=== PATIENT | female | born 1995 | race American Indian/Alaskan Native ===

== ENCOUNTER 2017-01-06 10:55 | Emergency (ER) | payer OTHER ==
[2017-01-06 11:18] VITALS: BP 146/85
[2017-01-06] MEDS ORDERED: BENADRYL PO ONE (12:41)
--- NOTE | 2017-01-06 17:48 | Emergency Department Report ---
Entered by TAMY DELGADILLO, acting as scribe for SHILPA LEVINE PA. ED Rash HPI - HPI Chief Complaint: Skin Rash Stated Complaint: ITCHING ALL OVER Time Seen by Provider: 01/06/17 12:19 Duration: 2 weeks Location: Other (generalized) Suspected Cause: Unknown Rash Symptoms: Yes Itching (generalized), No Facial Swelling, No Tongue/Oral Swelling, No Breathing Difficulties, No Choking Sensation, No Wheezing/Dyspnea, No Peeling, No Blistering, No Fever, No Lightheaded, No Malaise, No Myalgias Severity: mild Other History: 21 y/o female with a PMHx of diabetes mellitus and herpes presents to the ED c/o a generalized rash that began 2 weeks ago. Patient states she the onset of the rash began once she started living an a hotel, Home Stay. Reports her roommates have similar rash. Rates severity a 0/10. Denies any pain, fever, chills, nausea, vomiting, headache, dizziness, sore throat, chest pain, SOB, numbness, and tingling. Denies that the rash is erythematous. Patient states she's been out of medication, acyclovir QD. NKDA. ED Review of Systems ROS: Stated complaint: ITCHING ALL OVER Other details as noted in HPI Comment: All other systems reviewed and negative Constitutional: denies: chills, fever Eyes: denies: eye pain, eye discharge, vision change ENT: denies: ear pain, throat pain Respiratory: denies: cough, orthopnea, shortness of breath, SOB with exertion, SOB at rest, stridor, wheezing Cardiovascular: denies: chest pain, palpitations, dyspnea on exertion, orthopnea , edema, syncope, paroxysmal nocturnal dyspnea Endocrine: no symptoms reported Gastrointestinal: denies: abdominal pain, nausea, vomiting, diarrhea Genitourinary: denies: urgency, dysuria, discharge Musculoskeletal: denies: back pain, joint swelling, arthralgia Skin: rash (generalized with associated itching). denies: lesions Neurological: denies: headache, weakness, paresthesias Psychiatric: denies: anxiety, depression Hematological/Lymphatic: denies: easy bleeding, easy bruising ED Past Medical Hx - Past Medical History Previous Medical History?: Yes Hx Diabetes: Yes Additional medical history: Herpes - Surgical History Past Surgical History?: No - Social History Smoking Status: Current Some Day Smoker Substance Use Type: None - Medications Home Medications: Home Medications Medication Instructions Recorded Confirmed Last Taken Type Fluconazole [Diflucan] 150 mg PO QDAY #1 tablet 01/22/14 Unknown Rx Nitrofurantoin [place]/M-Cryst 100 mg PO Q12HR #14 capsule 01/22/14 Unknown Rx [Macrobid] metroNIDAZOLE [Flagyl] 500 mg PO Q8HR #14 tablet 01/22/14 Unknown Rx HYDROcodone/APAP 5-325 [[place] 1 each PO Q8H PRN #15 tablet 02/27/15 Unknown Rx 5/325] Phenazopyridine [Pyridium] 200 mg PO TID #6 tab 02/27/15 Unknown Rx Promethazine [Phenergan TAB] 25 mg PO Q8HR PRN #12 tab 02/27/15 Unknown Rx Sulfamethoxazole/Trimethoprim 1 each PO BID #20 tablet 02/27/15 Unknown Rx [Bactrim DS TAB] Triamcinolone Acetonide 1 applic TP BID #120 ml 01/06/17 Unknown Rx [Triamcinolone 0.1% LOTION] diphenhydrAMINE [Benadryl CAP] 25 mg PO QHS PRN #30 capsule 01/06/17 Unknown Rx Rash Exam - Exam General: Vital signs noted. GENERAL: Patient is alert and oriented x 3. No apparent distress, normal gait, atraumatic. HEENT: No Periorbital Edema, No Conjuctival Injection, No Chemosis, No Perioral Edema, No Tongue Edema, No Uvular Edema, No Compromised Airway, No Drooling Lungs: Yes Good Air Exchange (Symmetrical with respiration. No wheezing, rales or crackles, CTAB.), No Wheezes, No Ronchi, No Stridor, No Cough, No Labored Respirations, No Retractions, No Use of Accessory Muscles, No Other Abnormal Lung Sounds Heart: Yes Regular (Regular rate and rhythm with normal S1/S2 present. No murmurs, rubs, or gallops.), No Murmur Skin: Yes Other (patient is itching during exam, but no rash noted), No Urticarial Rash, No Maculopapular Rash, No Morbilliform rash, No Bulla(e), No Excoriations, No Weeping, No Tenderness, No Erythema, No Edema, No Encrustations Other: Positive: Abdomen Normal (Soft, nondistended. Nontender to palpation on all quadrants.), Neurologic Normal (No focal deficit.), Musculoskeletal Normal ( ROM intact, 2+ pulses in UE/LE, no pitting edema) ED Course Vital Signs 01/06/17 11:11 Temperature 98.6 F Pulse Rate 73 Respiratory 16 Rate Blood Pressure 146/85 O2 Sat by Pulse 99 Oximetry ED Medical Decision Making - Medical Decision Making 21 year-old female presents with generalized rash ED course: Patient was given Benadryl Vital signs stable patient is in no acute or respiratory distress. Discussed findings with patient about diagnoses. Discussed treatment in ED with patient Discussed with patient to follow up with PCP as referred, and to return to the ED if symptoms return or worsen. Patient states understanding and will follow instructions. Pt verbally states understanding and will comply to follow up. Critical care attestation.: If time is entered above; I have spent that time in minutes in the direct care of this critically ill patient, excluding procedure time. ED Disposition Clinical Impression: Generalized pruritus Disposition: - TO HOME OR SELFCARE Is pt being admited?: No Does the pt Need Aspirin: No Condition: Stable Instructions: Itchy Skin (ED), Acute Rash (ED) Prescriptions: diphenhydrAMINE [Benadryl CAP] 25 mg PO QHS PRN #30 capsule PRN Reason: Itching Triamcinolone Acetonide [Triamcinolone 0.1% LOTION] 1 applic TP BID #120 ml Referrals: PRIMARY CARE, [Primary Care Provider] - 3-5 Days [facility] [Outside] - 3-[address] [facility] [Outside] - 3-5 Days [facility] [Outside] - 3-5 Days Forms: Accompanied Note, Work/School Release Form(ED) Time of Disposition: 12:45 This documentation as recorded by the LEONA maynard JASMINE,accurately reflects the service I personally performed and the decisions made by ,SHILPA LEVINE PA.
== END 2017-01-06 13:00 | disposition home or self-care (01) ==
LOC: ED 10:55
DX: L29.9 Pruritus, unspecified (principal); E11.9 Type 2 diabetes mellitus without complications; F17.200 Nicotine dependence, unspecified, uncomplicated
CPT/HCPCS: 82962; 99282

== ENCOUNTER 2017-07-15 12:37 | Emergency (ER) | payer SELFPAY ==
[2017-07-15 12:42] VITALS: BP 146/67
--- NOTE | 2017-07-15 14:57 | Emergency Department Report ---
ED Headache HPI - General Chief Complaint: Headache Stated Complaint: HEADACHE Time Seen by Provider: 07/15/17 14:37 - History of Present Illness Initial Comments: Patient is a 22-year-old female presented with headache. Patient states that 4 days ago she ate something at work made her sick she had several episodes of nausea vomiting and diarrhea for a day. Patient states next day she SLEPT all day really wasn't eating or drinking nausea vomiting was improved but was not feeling well still. Patient states headache began than his persistent for the neck last 3 days. Patient states it's worse when she stands up denies any nausea vomiting currently. Patient states the headache is roughly a 6 out of 10 in severity. Allergies/Adverse Reactions: Allergies No Known Allergies Allergy (Verified 07/15/17 12:43) Home Medications: Ambulatory Orders Fluconazole [Diflucan] 150 mg PO QDAY #1 tablet 01/22/14 Nitrofurantoin [place]/M-Cryst [Macrobid] 100 mg PO Q12HR #14 capsule 01/22/14 metroNIDAZOLE [Flagyl] 500 mg PO Q8HR #14 tablet 01/22/14 HYDROcodone/APAP 5-325 [[place] 5/325] 1 each PO Q8H PRN #15 tablet 02/27/15 Phenazopyridine [Pyridium] 200 mg PO TID #6 tab 02/27/15 Promethazine [Phenergan TAB] 25 mg PO Q8HR PRN #12 tab 02/27/15 Sulfamethoxazole/Trimethoprim [Bactrim DS TAB] 1 each PO BID #20 tablet Triamcinolone Acetonide [Triamcinolone 0.1% LOTION] 1 applic TP BID #120 ml diphenhydrAMINE [Benadryl CAP] 25 mg PO QHS PRN #30 capsule 01/06/17 Ibuprofen [Motrin] 600 mg PO Q8H PRN #20 tablet 07/15/17 ED Review of Systems ROS: Stated complaint: HEADACHE Other details as noted in HPI Comment: All other systems reviewed and negative ED Past Medical Hx - Past Medical History Hx Diabetes: Yes Additional medical history: Herpes - Social History Smoking Status: Current Some Day Smoker - Medications Home Medications: Home Medications Medication Instructions Recorded Confirmed Last Taken Type Fluconazole [Diflucan] 150 mg PO QDAY #1 tablet 09/09/14 Unknown Rx Nitrofurantoin [place]/M-Cryst 100 mg PO Q12HR #14 capsule 01/22/14 Unknown Rx [Macrobid] metroNIDAZOLE [Flagyl] 500 mg PO Q8HR #14 tablet 01/22/14 Unknown Rx HYDROcodone/APAP 5-325 [[place] 1 each PO Q8H PRN #15 tablet 02/27/15 Unknown Rx 5/325] Phenazopyridine [Pyridium] 200 mg PO TID #6 tab 02/27/15 Unknown Rx Promethazine [Phenergan TAB] 25 mg PO Q8HR PRN #12 tab 02/27/15 Unknown Rx Sulfamethoxazole/Trimethoprim 1 each PO BID #20 tablet 02/27/15 Unknown Rx [Bactrim DS TAB] Triamcinolone Acetonide 1 applic TP BID #120 ml 01/06/17 Unknown Rx [Triamcinolone 0.1% LOTION] diphenhydrAMINE [Benadryl CAP] 25 mg PO QHS PRN #30 capsule 01/06/17 Unknown Rx Ibuprofen [Motrin] 600 mg PO Q8H PRN #20 tablet 07/15/17 Unknown Rx ED Physical Exam - General Limitations: No Limitations General appearance: alert, in no apparent distress - Head Head exam: Present: atraumatic, normocephalic - Eye Eye exam: Present: normal appearance - ENT ENT exam: Present: mucous membranes moist - Neck Neck exam: Present: normal inspection - Respiratory Respiratory exam: Present: normal lung sounds bilaterally. Absent: respiratory distress, wheezes, rales, rhonchi - Cardiovascular Cardiovascular Exam: Present: regular rate, normal rhythm. Absent: systolic murmur, diastolic murmur, rubs, gallop - GI/Abdominal GI/Abdominal exam: Present: soft, normal bowel sounds. Absent: distended, tenderness, guarding, rebound - Extremities Exam Extremities exam: Present: normal inspection - Back Exam Back exam: Present: normal inspection - Neurological Exam Neurological exam: Present: alert, oriented X3 - Psychiatric Psychiatric exam: Present: normal affect, normal mood - Skin Skin exam: Present: warm, dry, intact, normal color. Absent: rash ED Course Vital Signs 07/15/17 07/15/17 12:37 12:42 Temperature 98.4 F Pulse Rate 79 Respiratory 15 Rate Blood Pressure 146/67 O2 Sat by Pulse 99 Oximetry ED Medical Decision Making - Medical Decision Making Patient is a 22-year-old Female who had episodes of nausea vomiting diarrhea and then day and a half of not eating and drinking well. Patient most likely has some mild dehydration causing headache. Patient given IV fluids and Toradol be discharged home afterwards Critical care attestation.: If time is entered above; I have spent that time in minutes in the direct care of this critically ill patient, excluding procedure time. ED Disposition Clinical Impression: Dehydration, Headache Disposition: DC- TO HOME OR SELFCARE Is pt being admited?: No Does the pt Need Aspirin: No Condition: Stable Instructions: Dehydration (ED), Tension Headache (ED) Prescriptions: Ibuprofen [Motrin] 600 mg PO Q8H PRN #20 tablet PRN Reason: Pain Referrals: PRIMARY CARE, [Primary Care Provider] - 3-5 Days
[2017-07-15] MEDS ORDERED: NACL 0.9% 1000 ML 1,000 ML IV ONE (14:58)
[2017-07-15] MEDS ORDERED: TORADOL IV ONE (14:58)
[2017-07-15] MEDS ORDERED: TORADOL IM ONE (15:34)
== END 2017-07-15 15:46 | disposition home or self-care (01) ==
LOC: ED 12:37
DX: E86.0 Dehydration (principal); R51 Headache; R11.2 Nausea with vomiting, unspecified; R19.7 Diarrhea, unspecified; E11.9 Type 2 diabetes mellitus without complications; F17.200 Nicotine dependence, unspecified, uncomplicated
CPT/HCPCS: 96372; 99282; J1885

== ENCOUNTER 2017-10-11 18:53 | Emergency (ER) | payer SELFPAY ==
[2017-10-11 18:59] VITALS: BP 144/78
--- NOTE | 2017-10-12 00:46 | Emergency Department Report ---
ED Back Pain/Injury HPI - General Chief Complaint: Back Pain/Injury Stated Complaint: PAIN IN TAILBONE/HSV2 OUTBREAK Time Seen by Provider: 10/12/17 00:05 Source: patient Limitations: No Limitations - History of Present Illness Initial Comments: This is a 22-year-old -[place]ian female presents with tailbone pain and genital herpes outbreak. Patient reports pain started a couple of days ago to lower back. Patient reports it is painful to lift were sit. She does not recall injury. [place] and an not sure she bumped into something while working. She is currently taking Advil for symptom relief with no improvement of symptoms. Pain is in the midline lower back near coccyx area. Pain is nonradiating and 10 out of 10 while sitting. She is also requesting refills of famciclovir for genital herpes outbreak. Patient denies change in voiding pattern, bowel pattern, radiating pain, numbness or tingling. MD Complaint: back pain (low back pain) -: days(s) (4-5 days) Similar Symptoms Previously: No Place: work Radiation: none Severity: severe Severity scale (0 -10): 10 Quality: aching Consistency: intermittent Improves With: immobilization, supine Worsens With: movement, sitting upright Context: unknown Associated Symptoms: denies other symptoms Treatments Prior to Arrival: NSAIDS - Related Data Previous Rx's Medication Instructions Recorded Last Taken Type Fluconazole [Diflucan] 150 mg PO QDAY #1 tablet 01/22/14 Unknown Rx Nitrofurantoin [place]/M-Cryst 100 mg PO Q12HR #14 capsule 01/22/14 Unknown Rx [Macrobid] metroNIDAZOLE [Flagyl] 500 mg PO Q8HR #14 tablet 01/22/14 Unknown Rx HYDROcodone/APAP 5-325 [[place] 1 each PO Q8H PRN #15 tablet 02/27/15 Unknown Rx 5/325] Phenazopyridine [Pyridium] 200 mg PO TID #6 tab 02/27/15 Unknown Rx Promethazine [Phenergan TAB] 25 mg PO Q8HR PRN #12 tab 02/27/15 Unknown Rx Sulfamethoxazole/Trimethoprim 1 each PO BID #20 tablet 02/27/15 Unknown Rx [Bactrim DS TAB] Triamcinolone Acetonide 1 applic TP BID #120 ml 01/06/17 Unknown Rx [Triamcinolone 0.1% LOTION] diphenhydrAMINE [Benadryl CAP] 25 mg PO QHS PRN #30 capsule 01/06/17 Unknown Rx Ibuprofen [Motrin] 600 mg PO Q8H PRN #20 tablet 07/15/17 Unknown Rx Naproxen [Naprosyn] 500 mg PO Q6H PRN #20 tablet 10/12/17 Unknown Rx Valacyclovir HCl [Valtrex] 1,000 mg PO BID #20 tablet 10/12/17 Unknown Rx Allergies Allergy/AdvReac Type Severity Reaction Status Date / Time No Known Allergies Allergy Verified 10/11/17 18:58 ED Review of Systems ROS: Stated complaint: PAIN IN TAILBONE/HSV2 OUTBREAK Other details as noted in HPI Constitutional: denies: chills, fever Respiratory: denies: cough, shortness of breath, wheezing Cardiovascular: denies: chest pain, palpitations Endocrine: no symptoms reported Gastrointestinal: denies: abdominal pain, nausea, vomiting, diarrhea Genitourinary: denies: urgency, dysuria, frequency, discharge Musculoskeletal: back pain (low back pain near coccyx). denies: joint swelling , arthralgia Skin: denies: rash, lesions Neurological: denies: headache, weakness, paresthesias Psychiatric: denies: anxiety, depression ED Past Medical Hx - Past Medical History Herpes Family history: no significant family history ED Back Pain Physical Exam - Exam General: Vital signs noted. No distress. Alert and acting appropriately. Morbidly obese. Back/Abdomen: Yes Sacroiliac Tenderness (midline tenderness), No Abdominal Tenderness, No Perithoracic Tenderness, No Perilumbar Tenderness, No Flank Tenderness, No Straight Leg Raise Pain Neuro: Yes Normal Sensation, Yes Normal DTR's, Yes Normal Gait, No Motor Weakness ED Course Vital Signs 10/11/17 18:58 Temperature 97.8 F Pulse Rate 95 H Respiratory 18 Rate Blood Pressure 144/78 O2 Sat by Pulse 98 Oximetry ED Medical Decision Making - Radiology Data Radiology results: report reviewed X-ray spine sacrum/coccyx: Within normal limits. X-ray L-spine impression: Mild levoscoliosis. No acute injury otherwise. - Medical Decision Making This is a 22 y.o. female presents with low back pain for 3-4 days and genital herpes outbreak. History of genital herpes. Patient was examined by me. Vitals stable. Given Toradol 30 mg IM once in the ER. Obtained x-ray of L- spine and sacrum/coccyx. Scans were read by the radiologist. X-ray spine sacrum/coccyx: Within normal limits. X-ray L-spine impression: Mild levoscoliosis. No acute injury otherwise. Physical findings susceptible of muscle strain of lower back and morbidly obese. Patient informed of results. Start naproxen for pain. Refill Valtrex for genital herpes. Plan discussed with patient to discharge home and treat outpatient. She agrees with ER plan. Patient discharged home in stable condition. Follow up with PCP in 2-3 days. Critical care attestation.: If time is entered above; I have spent that time in minutes in the direct care of this critically ill patient, excluding procedure time. ED Disposition Clinical Impression: Strain of muscle, fascia and tendon of lower back, initial encounter Herpes, genital Qualifiers: Herpes simplex infection site: vulvovaginitis Qualified Code(s): A60.04 - Herpesviral vulvovaginitis Low back pain Qualifiers: Chronicity: acute Back pain laterality: midline Sciatica presence: without sciatica Qualified Code(s): M54.5 - Low back pain Disposition: - TO HOME OR SELFCARE Is pt being admited?: No Does the pt Need Aspirin: No Condition: Stable Instructions: Muscle Strain (ED), Genital Herpes Simplex (ED), Acute Low Back Pain (ED) Additional Instructions: Rest Use ice or heat on affected area for 20 minutes and off for 2 hours. Take pain medication as needed for pain. Follow up with Primary Care Provider in 2-3 days. Prescriptions: Naproxen [Naprosyn] 500 mg PO Q6H PRN #20 tablet PRN Reason: Pain Valacyclovir HCl [Valtrex] 1,000 mg PO BID #20 tablet Referrals: [facility] [Outside] - 3-5 Days [facility] [Outside] - 3-5 Days [facility] [Outside] - 3-5 Days Time of Disposition: 01:58 Print Language: CITIZ[place] OF [place]
--- NOTE | 2017-10-12 01:40 | XRay Report ---
FINAL REPORT EXAM: XR SPINE SACRUM/COCCYX 2+V HISTORY: low back pain and coccyx pain TECHNIQUE: Three views of the sacrum and coccyx were obtained. FINDINGS: There is no evidence of fracture or soft tissue injury. The SI joints appear normal. IMPRESSION: Within normal limits.
--- NOTE | 2017-10-12 01:40 | XRay Report ---
FINAL REPORT EXAM: XR SPINE LUMBOSACRAL 2-3V HISTORY: low back and coccyx pain TECHNIQUE: Three views of the lumbar spine were submitted. FINDINGS: There is a mild levoscoliosis. The disc heights and alignment appear normal. There is no evidence of fracture. The SI joints appear normal. The soft tissues well maintained IMPRESSION: Mild levoscoliosis. No acute injury otherwise.
[2017-10-12] MEDS ORDERED: TORADOL IM ONE (01:53)
== END 2017-10-12 02:10 | disposition home or self-care (01) ==
LOC: ED 18:53
DX: S39.012A Strain of muscle, fascia and tendon of lower back, initial encounter (principal); X50.0XXA Overexertion from strenuous movement or load, initial encounter; Y93.89 Activity, other specified; Y92.89 Other specified places as the place of occurrence of the external cause; Y99.8 Other external cause status; A60.04 Herpesviral vulvovaginitis
CPT/HCPCS: 72100; 72220; 96372; 99283; J1885